=== PATIENT | female | born 1940 | race Caucasian/White ===

== ENCOUNTER → 2017-09-15 | Outpatient (CLI) | payer MEDICARE, OTHER ==
[~2017-09-15] MED LIST: AMLO5TAB2 PO; HYDR25TA5 PO; LOSA100T PO; NUVI150T2 PO; PRIL20TA2 PO; TRAZ50TA12 PO
[2017-09-15 10:27] LABS: AUTOMATED NEUTROPHIL # 3.7 TH/MM3 (1.8-7.7); BASOPHIL # 0.1 TH/MM3 (0-0.2); BASOPHIL % 1.1 % (0.0-2.0); EOSINOPHIL # 0.1 TH/MM3 (0-0.4); HEMATOCRIT 40.1 % (35.0-46.0); HEMOGLOBIN 13.6 GM/DL (11.6-15.3); LYMPH % 19.9 % (9.0-44.0); LYMPHOCYTE # 1.1 TH/MM3 (1.0-4.8); MEAN CELL VOLUME 87.6 FL (80.0-100.0); MEAN CORPUSCULAR HEMOGLOBIN 29.7 PG (27.0-34.0); MEAN CORPUSCULAR HGB CONC 33.9 % (32.0-36.0); MEAN PLATELET VOLUME 7.1 FL (7.0-11.0); MONO % 11.3 % (0.0-8.0); MONOCYTE # 0.6 TH/MM3 (0-0.9); NEUT % 65.7 % (16.0-70.0); PLATELET COUNT 363 TH/MM3 (150-450); RED BLOOD COUNT 4.58 MIL/MM3 (4.00-5.30); RED CELL DISTRIBUTION WIDTH 13.5 % (11.6-17.2); WHITE BLOOD COUNT 5.6 TH/MM3 (4.0-11.0)
[2017-09-15 10:51] LABS: ALBUMIN 4.1 GM/DL (3.4-5.0); ALT (GPT) 35 U/L (10-53); AST (GOT) 23 U/L (15-37); BLOOD UREA NITROGEN 15 MG/DL (7-18); CALCIUM 9.5 MG/DL (8.5-10.1); CHLORIDE 93 MEQ/L (98-107); CREATININE 0.81 MG/DL (0.50-1.00); GLOMERULAR FILTRATION RATE 69 ML/MIN (>89); GLUCOSE,FASTING 85 MG/DL (74-99); SODIUM (NA) 129 MEQ/L (136-145)
[2017-09-15 10:53] LABS: ALKALINE PHOSPHATASE 90 U/L (45-117); TOTAL BILIRUBIN ADULT 0.3 MG/DL (0.2-1.0); TOTAL PROTEIN 8.4 GM/DL (6.4-8.2); WESTERGREN SEDIMENTATION RATE 28 mm/hr (0-30)
--- NOTE | 2017-09-15 12:47 | RADRPT ---
EXAM DATE/TIME: 09/15/2017 12:11 [facility] COMPARISON: No previous studies available for comparison. INDICATIONS : Evaluate for communicable disease, pneumonia, pneumothorax. MEDICAL HISTORY : None. SURGICAL HISTORY : None. ENCOUNTER: Initial ACUITY: 1 day PAIN SCORE: 0/10 LOCATION: Bilateral chest FINDINGS: PA and lateral views of the chest demonstrate the lungs to be symmetrically aerated without evidence of mass, infiltrate or effusion. The cardiomediastinal contours are unremarkable. Osseous structure s are intact. Previous lumbar spine fixation. CONCLUSION: Negative for acute process. Nayan Kline MD FACR on September 15, 2017 at 12:44 Board Certified Radiologist. This report was verified electronically.
[2017-09-15 14:20] LABS: AMORPHOUS SEDIMENT, URINE MOD; BILIRUBIN, URINE NEG (NEG); BLOOD, URINE NEG (NEG); GLUCOSE,URINE NEG (NEG); HYALINE CAST, URINE 1 /lpf (RARE); KETONE, URINE NEG (NEG); NITRITE,URINE NEG (NEG); SQUAMOUS EPITHELIAL CELL URINE <1 /hpf (0-5); URINE COLOR YELLOW (YELLW/STRAW); URINE LEUKOCYTE ESTERASE NEG (NEG)
--- NOTE | 2017-09-16 13:30 | EKG ---
Date Performed: 09/15/2017 Time Performed: 11:35:06 PTAGE: 76 years EKG: Sinus rhythm with PAC(s). Possible anteroseptal infarct - age undetermined Inferior T wave changes are nonspecifi c Low QRS voltages in precordial leads Abnormal ECG NO PREVIOUS TRACING DOCTOR: Dave Alejandro Interpretating Date/Time 09/16/2017 13:29:53
== END ==
LOC: CPRE 09:20
PROVIDERS: ATTEND Orthopaedic Surgery Sports Medicine
DX: Z01.812 Encounter for preprocedural laboratory examination (principal); Z01.811 Encounter for preprocedural respiratory examination; Z01.810 Encounter for preprocedural cardiovascular examination; M16.11 Unilateral primary osteoarthritis, right hip; R94.31 Abnormal electrocardiogram [ECG] [EKG]
CPT/HCPCS: 36415; 71046; 80053; 81001; 85025; 85610; 85652; 85730; 93005

== ENCOUNTER 2017-10-02 05:17 | Inpatient (IN) | payer MEDICARE, OTHER ==
[~2017-10-02] VITALS: Ht 160 cm; Wt 81.8 kg
[2017-10-02] MEDS ORDERED: HYDR25TA5 PO (05:53)
[2017-10-02] MEDS ORDERED: POVIDONE IODINE 7.5% SCRUB 118 ML BOTTLE TOPICAL SCH (06:15)
[2017-10-02] MEDS ORDERED: TRANEXAMIC PERI-ARTICULAR 3,000 MG/NS 100 ML P-ARTICULR SCH ×2 (06:15)
[2017-10-02] MEDS ORDERED: LACTATED RINGER'S 1000 ML IV PRN (06:15)
[2017-10-02] MEDS ORDERED: SODIUM CHLORID 0.9% 500 ML IV PRN (06:15)
[2017-10-02] MEDS ORDERED: TRANEXAMIC ACID IV SCH (06:15)
[2017-10-02] MEDS ORDERED: CHLORHEXIDINE GLUCONATE 4% SOLN 120 ML BTL TOPICAL SCH (06:15)
[2017-10-02] MEDS ORDERED: SODIUM CHLORIDE 0.9% IV SCH (06:15)
[2017-10-02] MEDS ORDERED: EXPAREL PERI-ARTICULAR INJECTION (TOTAL VOL. 60 ML) P-ARTICULR SCH ×2 (06:15)
[2017-10-02] MEDS ORDERED: VANCOMYCIN 1000 MG/NS 250 ML (for <70 kg) IV SCH ×2 (06:15)
[2017-10-02] MEDS ORDERED: CHLORHEXIDINE GLUCONATE 2 % 1 PACK (2 CLOTHS) TOPICAL PRN (06:15)
[2017-10-02] MEDS ORDERED: POVIDONE IODINE 5% (ANTISEPSIS KIT) 4 APPLICATIONS EACH NARE PRN (06:15)
[2017-10-02] MEDS ORDERED: METOPROLOL TARTRATE 25 MG TAB PO PRN (06:15)
[2017-10-02] MEDS ORDERED: ceFAZolin 2 GM PREMIX 50 ML IV SCH (06:15)
[2017-10-02] MEDS ORDERED: DEXAMETHASONE SOD PHOS 20 MG/5 ML VIAL IV PRN (06:15)
[2017-10-02] MEDS ORDERED: GENTAMICIN SULFATE 80 MG/2 ML VIAL ONE (06:20)
[2017-10-02] MEDS ORDERED: NALOXONE HCL 0.4 MG/ML AMP IV PUSH PRN (06:45)
[2017-10-02] MEDS ORDERED: Post-op Orders (for Pharmacy) XX ONE (06:45)
[2017-10-02] MEDS ORDERED: HYDR-3288 PO (06:47)
[2017-10-02] MEDS ORDERED: ASPI81CH6 CHEW (06:48)
[2017-10-02] MEDS ORDERED: ZOLPIDEM TARTRATE 5 MG TAB PO PRN (08:00)
[2017-10-02] MEDS ORDERED: BISACODYL 10 MG SUPP RECTAL PRN (08:00)
[2017-10-02] MEDS ORDERED: diphenhydrAMINE HCL 50 MG/ML VIAL IV PUSH PRN (08:00)
[2017-10-02] MEDS ORDERED: ACETAMINOPHEN/HYDROcodone 325 MG/10 MG TAB PO PRN ×2 (08:00)
[2017-10-02] MEDS ORDERED: ONDANSETRON HCL 4 MG/2 ML VIAL IVP PRN (08:00)
[2017-10-02] MEDS ORDERED: MORPHINE SULFATE 4 MG/ML INJ IV PUSH PRN (08:00)
[2017-10-02] MEDS ORDERED: DO NOT ADM ANY ANTICOAGULANT DRUGS PRN (08:48)
[2017-10-02] MEDS: SODIUM CHLOR 0.9% 1000 ML INJ 1,000 ML IV SCH ×2 (08:56→21:15)
[2017-10-02] MEDS: amLODIPine BESYLATE 5 MG TAB PO SCH (09:00)
[2017-10-02] MEDS ORDERED: *morphine SULFATE 4 MG/ML PERIprocedure ONLY ONE ×2 (09:00→09:21)
[2017-10-02] MEDS: HYDROCHLOROTHIAZIDE 25 MG TAB PO SCH (09:00)
[2017-10-02] MEDS ORDERED: ARMODAFINIL 150 MG PO SCH (09:00)
[2017-10-02] MEDS ORDERED: PANTOPRAZOLE SOD 20 MG DELAYED RELEASE TAB PO SCH (09:00)
[2017-10-02] MEDS: LOSARTAN 50 MG TAB PO SCH (09:00)
[2017-10-02 10:20] VITALS: BP 123/64; PULSE 74; RESP 17; TEMP 96.5; O2SAT 98
--- NOTE | 2017-10-02 10:20 | RADRPT ---
EXAM DATE/TIME: 10/02/2017 09:01 [facility] COMPARISON: No previous studies available for comparison. INDICATIONS : Post op right total hip replacement. MEDICAL HISTORY : None. SURGICAL HISTORY : None. ENCOUNTER: Initial ACUITY: 1 day PAIN SCORE: 3/10 LOCATION: Right Hip FINDINGS: The patient is status post a total hip arthroplasty with a bipolar prosthesis. Prosthesis is well-sea zulema. Alignment is anatomic. A fracture is not appreciated. Posterior spinal fusion is noted as well. CONCLUSION: Anatomic alignment. Nayan Kline MD FACR on October 02, 2017 at 10:17 Board Certified Radiologist. This report was verified electronically.
[2017-10-02] MEDS ORDERED: PHENYLEPH/NS 1000 MCG/10 ML SYR IV ONE (12:00)
[2017-10-02] MEDS ORDERED: LIDOCAINE HCL 1% PF 5 ML SYRINGE OTHER ONE (12:00)
[2017-10-02] MEDS ORDERED: PROPOFOL 200 MG/20 ML AMP IV ONE (12:00)
[2017-10-02] MEDS ORDERED: ePHEDrine/NS 25 MG/5 ML SYRINGE IV ONE (12:00)
[2017-10-02] MEDS ORDERED: ROCURONIUM INJ 50 MG/5 ML SYRINGE IV PUSH ONE (12:00)
[2017-10-02 12:04] VITALS: BP 115/60; PULSE 76; RESP 16; TEMP 96.7; O2SAT 98
--- NOTE | 2017-10-02 13:53 | RADRPT ---
EXAM DATE/TIME: 10/02/2017 07:15 [facility] COMPARISON: No previous studies available for comparison. INDICATIONS : Right anterior hip replacement. MEDICAL HISTORY : Hypertension. Osteoarthritis. Carcinoma, breast. SURGICAL HISTORY : Hysterectomy. ENCOUNTER: Initial ACUITY: 1 day PAIN SCORE: Non-responsive. LOCATION: Right anterior hip FINDINGS: The patient is status post a total hip arthroplasty with a bipolar prosthesis. Prosthesis is well-sea zulema. Alignment is anatomic. A fracture is not appreciated. CONCLUSION: Anatomic alignment. Nayan Kline MD FACR Board Certified Radiologist. This report was verified electronically.
--- NOTE | 2017-10-02 13:54 | HHI.DCPOC ---
Discharge Care Plan Diagnosis: (1) Primary localized osteoarthrosis, pelvic region and thigh Your Health Problems Are: Difficulty with ADL Goals to Promote Your Health * To prevent worsening of your condition and complications * To maintain your health at the optimal level Directions to Meet Your Goals Take your medications as prescribed Follow your dietary instruction Follow activity as directed Keep your appointments as scheduled Take your immunizations and boosters as scheduled If your symptoms worsen call your PCP, if no PCP go to Urgent Care Center or Emergency Room Smoking is Dangerous to Your Health. Avoid second hand smoke Call the 24-hour hour crisis hotline for domestic abuse at Mohit Foster Oct 02, 2017 13:54
--- NOTE | 2017-10-02 13:55 | HHI.FF ---
Face to Face Verification Diagnosis: (1) Primary localized osteoarthrosis, pelvic region and thigh Physical Therapy Gait training, Safety evaluation, Transfer training, bed to chair Knee: Total knee, Protocol: Right, Full weight bearing Right LE Weight Bearing: WB as tolerated Nursing RN: 3 days/week x 2 weeks Nursing: Dressing changes Dressing Changes: Daily dressing change Additional Instructions okay to maintain dressing unless saturated I have seen patient Erendira Santana on 10/02/17. My clinical findings support the need for the requested home health care services because: Limited ability to care for self High risk of falls I certify that my clinical findings support that this patient is homebound because: Post-op weakness Unsteady gait/balance Mohit Foster Oct 02, 2017 13:55
--- NOTE | 2017-10-02 15:47 | PD.CONS ---
HPI Service [facility] Consult Requested By Primary Care Physician Mina Beck M.D. Diagnoses: History of Present Illness Mrs. Santana is a 77-year-old female. She is admitted here to have a right hip arthroplasty, anterior approach. I am seeing her postop and she is doing well thus far. No nausea or vomiting and no pain. Baseline medical conditions include hypertension and narcolepsy. Previous surgeries are 2 level spinal fusion and lumpectomy and hysterectomy. No other complaints when seen. Blood pressures are stable when seen. Review of Systems Constitutional: DENIES: Fever, Chills, Night Sweats Eyes: DENIES: Blurred vision, Diplopia, Eye inflammation, Eye pain Ears, nose, mouth, throat: DENIES: Tinnitus, Hearing loss, Vertigo, Nasal discharge Respiratory: DENIES: Cough, Wheezing, Shortness of breath Cardiovascular: DENIES: Chest pain, Palpitations, Syncope Gastrointestinal: DENIES: Abdominal pain, Black stools, Bloody stools Musculoskeletal: COMPLAINS OF: Joint pain, DENIES: Muscle aches, Stiffness Integumentary: DENIES: Abnormal pigmentation, Pruritus, Rash, Nail changes Hematologic/lymphatic: DENIES: Bruising, Lymphadenopathy Immunologic/allergic: DENIES: Eczema, Urticaria Neurologic: DENIES: Abnormal gait, Headache, Paresthesias Psychiatric: DENIES: Anxiety, Confusion, Hallucinations Past Family Social History Allergies: Coded Allergies: sulfite (Verified Allergy, Unknown, Rash, 10/02/17) Past Medical History Hypertension Narcolepsy Past Surgical History 2 level spinal fusion Breast Lumpectomy Hysterectomy Reported Medications Reported Meds & Active Scripts Active Aspirin Low Dose (Aspirin) 81 Mg Chew 81 Mg CHEW BID 30 Days Mercer (Hydrocodone-Acetaminophen) 7.5-325 mg Tab 1-2 Tab PO Q6H PRN Reported Hydrochlorothiazide 25 Mg Tab 25 Mg PO DAILY Prilosec (Omeprazole Magnesium) 20 Mg Tab 20 Mg PO DIRECTED MON, WED, FRI Nuvigil (Armodafinil) 250 Mg Tab 150 Mg PO DIRECTED MID MORNING Trazodone (Trazodone HCl) 50 Mg Tab 50 Mg PO HS Losartan (Losartan Potassium) 100 Mg Tab 100 Mg PO DAILY Amlodipine (Amlodipine Besylate) 5 Mg Tab 5 Mg PO DAILY Active Ordered Medications Administered Medications Medications (Trade) Dose Ordered Sig/Chalo Route PRN Reason Start Time Stop Time Status Last Admin Dose Admin Dexamethasone Sodium Phosphate (Decadron Inj) 10 mg CRANE MANAGER PRN IV GIVE IN OR HOLDING 10/02/17 06:15 10/02/17 23:00 10/02/17 06:20 Cefazolin Sodium/ Dextrose 50 ml @ 100 mls/hr CRANE MANAGER IV 10/02/17 06:15 10/05/17 06:14 10/02/17 06:25 Vancomycin HCl 1000 mg/Sodium Chloride 250 ml @ 250 mls/hr CRANE MANAGER IV 10/02/17 06:15 10/05/17 06:14 10/02/17 06:29 Tranexamic Acid 1225 mg/Sodium Chloride 112.25 ml @ 200 mls/ hr ONCE IV 10/02/17 06:15 10/02/17 17:00 10/02/17 06:55 Tranexamic Acid 3000 mg/Sodium Chloride 130 ml @ 260 mls/hr ONCE P-ARTICULR 10/02/17 06:15 10/02/17 17:00 10/02/17 07:25 Lactated Ringer's 1,000 ml @ 30 mls/hr Q24H PRN IV SEE LABEL COMMENTS 10/02/17 06:15 10/05/17 06:14 10/02/17 05:55 Chlorhexidine Gluconate (Chlorhexidine 2% Cloth) 3 pack CRANE MANAGER PRN TOPICAL SEE LABEL COMMENTS 10/02/17 06:15 10/05/17 06:14 10/02/17 05:30 Bupivacaine Liposome 20 ml/ Sodium Chloride 60 ml @ 120 mls/hr ONCE P-ARTICULR 10/02/17 06:15 10/02/17 16:00 10/02/17 07:25 Sodium Chloride 1,000 ml @ 100 mls/hr Q10H IV 10/02/17 08:00 10/02/17 08:56 Cefazolin Sodium 1000 mg/Sodium Chloride 100 ml @ 200 mls/hr Q6H IV 10/02/17 13:00 10/03/17 01:29 10/02/17 13:00 Family History Osteoarthritis of brain tumor in mother Hyperlipidemia father Social History Occasional alcohol use No nicotine use No illicit drug abuse Physical Exam Vital Signs Vital Signs Date Time Temp Pulse Resp B/P (MAP) Pulse Ox O2 Delivery O2 Flow Rate FiO2 10/02/17 12:04 96.7 76 16 115/60 (78) 98 10/02/17 10:20 96.5 74 17 123/64 (83) 98 10/02/17 09:43 97.0 74 13 123/66 (85) 99 Nasal Cannula 2 10/02/17 09:30 72 12 126/65 (85) 99 Nasal Cannula 2 10/02/17 09:15 96.3 75 12 126/60 (82) 98 Nasal Cannula 3 10/02/17 09:00 81 12 124/60 (81) 98 Nasal Cannula 3 10/02/17 08:45 91 12 122/57 (78) 96 Nasal Cannula 3 10/02/17 08:43 96.3 73 12 119/62 (81) 95 Nasal Cannula 3 10/02/17 06:02 97.9 66 18 158/82 (107) 100 Physical Exam GENERAL: NAD, A&Ox3 HEAD: Normocephalic. NECK: Supple, trachea midline. No lymphadenopathy. EYES: No scleral icterus. No injection or drainage. CARDIOVASCULAR: Regular rate and rhythm without murmurs, gallops, or rubs. RESPIRATORY: Breath sounds equal bilaterally. No accessory muscle use. GASTROINTESTINAL: Abdomen soft, non-tender, nondistended. MUSCULOSKELETAL: No cyanosis, or edema. Limited range of motion of right hip. SKIN: Warm and dry. NEURO: No focal neurological deficitis. Imaging Last Impressions Hip and Pelvis X-Ray 10/02/17 0000 Signed Impressions: Service Date/Time: Monday, October 02, 2017 09:01 - CONCLUSION: Anatomic alignment. Nayan Kline MD FACR Hip X-Ray 10/02/17 0000 Signed Impressions: Service Date/Time: Monday, October 02, 2017 07:15 - CONCLUSION: Anatomic alignment. Nayan Kline MD Assessment and Plan Problem List: (1) Primary localized osteoarthrosis, pelvic region and thigh ICD Code: M16.10 - Unilateral primary osteoarthritis, unspecified hip Assessment and Plan 77-year-old female admitted secondary to right hip arthroplasty Status post right hip arthroplasty, anterior approach Doing well postop Orthopedic surgeons following Continue pain treatment is needed Continue physical therapy Potential discharge in 1-2 days Hypertension Stable Continue baseline treatments Narcolepsy Continue baseline treatment DVT prophylaxis Per discretion of orthopedic surgeon Discharge planning Medically clear for discharge if hemoglobin levels are stable tomorrow morning Arcadio Lancaster MD Oct 02, 2017 15:46
[2017-10-02 16:14] VITALS: BP 143/67; PULSE 75; RESP 16; TEMP 96.8; O2SAT 96
[2017-10-02 17:07] VITALS: O2SAT 96
[2017-10-02 19:21] VITALS: BP 113/63; PULSE 77; RESP 18; TEMP 98; O2SAT 98
[2017-10-02] MEDS: traZODone HCL 50 MG TAB PO SCH (21:15)
[2017-10-03] VITALS (8 sets, daily range): BP systolic 94–149; BP diastolic 57–72; PULSE 57–100; RESP 17–18; TEMP 96.3–98.9; O2SAT 93–97
[2017-10-03] MEDS: SODIUM CHLOR 0.9% 1000 ML INJ 1,000 ML IV SCH ×3 (01:54→21:43)
[2017-10-03 07:13] LABS: HEMOGLOBIN 11.4 GM/DL (11.6-15.3); MEAN CELL VOLUME 88.7 FL (80.0-100.0); MEAN CORPUSCULAR HEMOGLOBIN 30.8 PG (27.0-34.0); MEAN CORPUSCULAR HGB CONC 34.7 % (32.0-36.0); MEAN PLATELET VOLUME 7.5 FL (7.0-11.0); PLATELET COUNT 275 TH/MM3 (150-450); RED BLOOD COUNT 3.72 MIL/MM3 (4.00-5.30); RED CELL DISTRIBUTION WIDTH 13.3 % (11.6-17.2); WHITE BLOOD COUNT 9.3 TH/MM3 (4.0-11.0)
[2017-10-03 07:41] LABS: BICARBONATE 25.8 MEQ/L (21.0-32.0); CALCIUM 8.3 MG/DL (8.5-10.1)
[2017-10-03] MEDS: amLODIPine BESYLATE 5 MG TAB PO SCH (08:13)
[2017-10-03] MEDS: LOSARTAN 50 MG TAB PO SCH (08:13)
[2017-10-03] MEDS: HYDROCHLOROTHIAZIDE 25 MG TAB PO SCH (08:13)
[2017-10-03] MEDS: ENOXAPARIN SODIUM 30 MG/0.3 ML SYRINGE SQ SCH (08:13)
--- NOTE | 2017-10-03 08:15 | PD.ORT.PN ---
Subjective Post Op Day #: 1 Subjective Remarks pain controlled. thigh sore. Objective Vitals Vital Signs Date Time Temp Pulse Resp B/P (MAP) Pulse Ox O2 Delivery O2 Flow Rate FiO2 10/03/17 04:44 98.9 100 18 116/71 (86) 95 10/03/17 00:11 98.0 83 18 132/63 (86) 97 10/02/17 19:21 98.0 77 18 113/63 (80) 98 10/02/17 17:07 96 10/02/17 16:14 96.8 75 16 143/67 (92) 96 10/02/17 12:04 96.7 76 16 115/60 (78) 98 10/02/17 10:20 96.5 74 17 123/64 (83) 98 10/02/17 09:43 97.0 74 13 123/66 (85) 99 Nasal Cannula 2 10/02/17 09:30 72 12 126/65 (85) 99 Nasal Cannula 2 10/02/17 09:15 96.3 75 12 126/60 (82) 98 Nasal Cannula 3 10/02/17 09:00 81 12 124/60 (81) 98 Nasal Cannula 3 10/02/17 08:45 91 12 122/57 (78) 96 Nasal Cannula 3 10/02/17 08:43 96.3 73 12 119/62 (81) 95 Nasal Cannula 3 I/O 10/02/17 10/02/17 10/02/17 10/03/17 10/03/17 10/03/17 07:00 15:00 23:00 07:00 15:00 23:00 Intake Total 773 ml 1280 ml 480 ml Output Total 600 ml 1000 ml 1000 ml Balance 173 ml 280 ml -520 ml Intake Oral 0 ml 1280 ml 480 ml IV Total 773 ml Output Urine Total 400 ml 1000 ml 1000 ml Estimated Blood Loss 200 ml # Bowel Movements 0 0 Result Diagram: 10/03/17 0512 10/03/17 0512 Objective Remarks in bed, nad dressing c/d/i no erythema thigh soft neg homans nvi Assessment & Plan Ortho Post Op Day #: 1 Problem List: Assessment and Plan s/p R ROBEL anterior approach wbat ok to maintain dressing unless saturated lovenox - d/c on asa81 d/c planning home with [facility] and pt - cleared today if does well in PT f/up dr. peters 2 weeks Mohit Foster Oct 03, 2017 08:15
[2017-10-03] MEDS ORDERED: DOCU100C15 PO (08:27)
[2017-10-03 08:30] LABS: CREATININE 0.74 MG/DL (0.50-1.00)
--- NOTE | 2017-10-03 08:45 | MP ---
cc: THIAGO OSPINA M.D. DATE OF SURGERY 10/02/2017 PREOPERATIVE DIAGNOSIS Right hip osteoarthritis. POSTOPERATIVE DIAGNOSES Right hip osteoarthritis. PROCEDURE Right total hip arthroplasty. SURGEON Dr. Thiago Ospina. MANAGER ONCOLOGY MARILEE Montoya. ANESTHESIA General. ESTIMATED BLOOD LOSS 200 cc. COMPLICATIONS None. IMPLANTS USED DePuy Corail, size 11 Press-Fit standard offset femoral stem, 48 solid Midland Gription cup, 32 mm cobalt-chrome head, +5 neck. JUSTIFICATION This patient is the patient is a 76-year-old female with a history of severe osteoarthritis involving the right hip. She has severe disabling pain with standing, walking ambulation and weightbearing activities and severe pain at rest. She has failed greater than three months of nonoperative conservative treatment include medication therapy, injections, ambulatory assisted aids, home exercise program, activity modification and weight loss. X-rays of the right hip reveal severe end-stage osteoarthritis with [id number] joint space narrowing, subchondral sclerosis, subchondral cysts, osteophyte formation and subluxation. The patient was counseled as to the risks, benefits and alternatives to a total hip arthroplasty. The risks were discussed which include but are not limited to anesthesia, bleeding, infection, damage to nerves and blood vessels, pain, stiffness, failure of components, leg length discrepancy, fracture dislocations, blood clot, pulmonary embolism, and even . The patient's pain is severe. She favored the benefits over the risks. She did wish to proceed with surgery. PROCEDURE IN DETAIL A written consent was obtained. The patient was identified by name, taken to the operating room and placed supine on the operating table. General anesthesia was administered as well as two grams of IV Ancef and one gram of IV vancomycin. The right and left foot were placed in padded traction boots. The right hip and right lower extremity were prepped and draped using isopropyl alcohol, Hibiclens solution and ChloraPrep solution. After a timeout was performed a longitudinal incision was made over the anterolateral aspect of the right hip. The fascial layer was incised. Dissection was carried over the tensor fascia ollie beneath the rectus femoris to allow exposure of the anterior hip capsule. A capsulotomy incision was performed. An oscillating saw was used to perform a femoral neck cut. The osteoarthritic femoral head and neck component was removed. A 10 blade scalpel was used to excise the labrum. Reaming of the acetabulum began at size 43 mm and was carried through to size 46 mm. Subsequently a solid Midland Gription cup was implanted in approximately 45 degrees of abduction and 10 degrees of anteversion. There was good purchase and fixation after insertion of the cup. A screw hole eliminator was placed followed by the neutral liner. The liner was impacted in place and tested for stability. Attention was turned to the femur where the leg was externally rotated, adducted and extended down to the ground. The capsule was released off the undersurface of the greater trochanter to allow for elevation and lateralization of the femur. A box cutting osteotome was used to gain entrance into the intramedullary canal and femur followed by a canal finder and sequential broaching up to size 11. A calcar planer was used to plane the calcar. Trial head and neck combinations were evaluated and final components implanted. With the current components the leg could achieve external rotation to 70 degrees and extension all the way down to the ground before evidence of anterior instability. Soft tissue tension felt appropriate. With the trial +1 neck the hip showed some mild anterior instability, but with the +5 showed excellent stability which is why I favored this length. Fluoroscopic imaging showed appropriate implantation of components. The surgical wound was thoroughly irrigated with sterile saline pulse lavage antibiotic-impregnated solution. The fascia layer was closed with #1 Vicryl suture, the subcutaneous layer with 2-0 Vicryl suture and skin was closed with Dermabond. Sterile dressing was applied. The patient tolerated the procedure well with no intraoperative complications noted. Rickie Foster, physician accounting manager assistant controller certified, was present during the entire procedure to include patient positioning and the procedure itself. The medical necessity of a physician accounting manager assistant controller was indicated in this case due to the complexity of the procedure. He assisted with appropriate manipulation of the leg and also retraction of muscle, tendon, bone and neurovascular structures. He assisted with preparation of bone and also implantation of the prosthetic replacement. MD DONY Velasquez/SHIREEN /8:20 AM /8:27 AM
--- NOTE | 2017-10-03 10:38 | HHI.PR ---
Subjective Remarks Doing well postop. Ambulating well with PT. Potential discharge today. Hemoglobin is 11.4. No further monitoring of hemoglobin. Objective Vital Signs Date Time Temp Pulse Resp B/P (MAP) Pulse Ox O2 Delivery O2 Flow Rate FiO2 10/03/17 09:21 18 10/03/17 08:43 96 21 10/03/17 08:00 97.9 70 18 146/71 (96) 96 10/03/17 04:44 98.9 100 18 116/71 (86) 95 10/03/17 00:11 98.0 83 18 132/63 (86) 97 10/02/17 19:21 98.0 77 18 113/63 (80) 98 10/02/17 17:07 96 10/02/17 16:14 96.8 75 16 143/67 (92) 96 10/02/17 12:04 96.7 76 16 115/60 (78) 98 I/O 10/02/17 10/02/17 10/02/17 10/03/17 10/03/17 10/03/17 07:00 15:00 23:00 07:00 15:00 23:00 Intake Total 773 ml 1280 ml 480 ml Output Total 600 ml 1000 ml 1000 ml Balance 173 ml 280 ml -520 ml Intake Oral 0 ml 1280 ml 480 ml IV Total 773 ml Output Urine Total 400 ml 1000 ml 1000 ml Estimated Blood Loss 200 ml # Bowel Movements 0 0 Result Diagram: 10/03/1751110/03/17 0512 Objective Remarks GENERAL: NAD, A&Ox3 HEAD: Normocephalic. NECK: Supple, trachea midline. No lymphadenopathy. EYES: No scleral icterus. No injection or drainage. CARDIOVASCULAR: Regular rate and rhythm without murmurs, gallops, or rubs. RESPIRATORY: Breath sounds equal bilaterally. No accessory muscle use. GASTROINTESTINAL: Abdomen soft, non-tender, nondistended. MUSCULOSKELETAL: No cyanosis, or edema. SKIN: Warm and dry. NEURO: No focal neurological deficitis. A/P Problem List: (1) Primary localized osteoarthrosis, pelvic region and thigh ICD Code: M16.10 - Unilateral primary osteoarthritis, unspecified hip Assessment and Plan 77-year-old female admitted secondary to right hip arthroplasty Status post right hip arthroplasty, anterior approach Doing well postop Hemoglobin stable postop. Orthopedic surgeon follow up as outpatient Continue pain treatment is needed Continue physical therapy Medically clear for discharge today Hypertension Stable Continue baseline treatments Narcolepsy Continue baseline treatment DVT prophylaxis Per discretion of orthopedic surgeon Discharge planning Medically clear for discharge today Arcadio Lancaster MD Oct 03, 2017 10:38
[2017-10-03] MEDS ORDERED: SODIUM CHLORID 0.9% 500 ML INJ 500 ML IV SCH (13:30)
[2017-10-03] MEDS: DOCUSATE SODIUM 100 MG CAP PO SCH (21:39)
[2017-10-03] MEDS: MULTIVITAMINS/MINERALS THERAPEUTIC TAB PO SCH (21:39)
[2017-10-03] MEDS: traZODone HCL 50 MG TAB PO SCH (21:39)
[2017-10-04 03:34] VITALS: BP 144/67; PULSE 89; RESP 18; TEMP 98.7; O2SAT 93
--- NOTE | 2017-10-04 06:46 | PD.ORT.PN ---
Subjective Post Op Day #: 2 Subjective Remarks pain controlled. thigh sore. hypotensive yesterday, better this am. Objective Vitals Vital Signs Date Time Temp Pulse Resp B/P (MAP) Pulse Ox O2 Delivery O2 Flow Rate FiO2 10/04/17 03:34 98.7 89 18 144/67 (92) 93 10/03/17 23:04 97.3 73 18 149/67 (94) 93 10/03/17 19:11 97.9 57 18 138/72 (94) 95 10/03/17 16:26 98.0 82 18 140/59 (86) 97 10/03/17 12:00 96.3 97 17 94/57 (69) 97 10/03/17 09:21 18 10/03/17 08:43 96 21 10/03/17 08:00 97.9 70 18 146/71 (96) 96 I/O 10/03/17 10/03/17 10/03/17 10/04/17 10/04/17 10/04/17 07:00 15:00 23:00 07:00 15:00 23:00 Intake Total 480 ml 1200 ml 480 ml Output Total 1000 ml 550 ml Balance -520 ml 650 ml 480 ml Intake Oral 480 ml 1200 ml 480 ml Output Urine Total 1000 ml 550 ml # Voids 7 4 # Bowel Movements 0 0 0 Result Diagram: 10/03/17 0512 10/03/17 0512 Objective Remarks in bed, nad dressing c/d/i no erythema, no drainage thigh soft neg homans nvi Assessment & Plan Ortho Post Op Day #: 2 Problem List: Assessment and Plan s/p R ROBEL anterior approach wbat ok to maintain dressing unless saturated lovenox - d/c on asa81 BP better today d/c planning home with [facility] and pt - cleared today if does well in PT f/up dr. peters 2 weeks Mohit Foster Oct 04, 2017 06:46
[2017-10-04 07:01] LABS: HEMATOCRIT 32.3 % (35.0-46.0); HEMOGLOBIN 11.2 GM/DL (11.6-15.3); MEAN CELL VOLUME 86.6 FL (80.0-100.0); MEAN CORPUSCULAR HEMOGLOBIN 30.1 PG (27.0-34.0); MEAN CORPUSCULAR HGB CONC 34.8 % (32.0-36.0); PLATELET COUNT 258 TH/MM3 (150-450); RED BLOOD COUNT 3.73 MIL/MM3 (4.00-5.30); RED CELL DISTRIBUTION WIDTH 13.5 % (11.6-17.2); WHITE BLOOD COUNT 8.9 TH/MM3 (4.0-11.0)
[2017-10-04 07:31] LABS: BICARBONATE 27.6 MEQ/L (21.0-32.0); CALCIUM 8.3 MG/DL (8.5-10.1); CREATININE 0.57 MG/DL (0.50-1.00)
[2017-10-04 08:00] VITALS: BP 142/75; PULSE 79; RESP 18; TEMP 98.3; O2SAT 96
[2017-10-04] MEDS: amLODIPine BESYLATE 5 MG TAB PO SCH (08:42)
[2017-10-04] MEDS: DOCUSATE SODIUM 100 MG CAP PO SCH (08:42)
[2017-10-04] MEDS: LOSARTAN 50 MG TAB PO SCH (08:42)
[2017-10-04] MEDS: MULTIVITAMINS/MINERALS THERAPEUTIC TAB PO SCH (08:43)
[2017-10-04] MEDS: HYDROCHLOROTHIAZIDE 25 MG TAB PO SCH (08:43)
[2017-10-04] MEDS: ENOXAPARIN SODIUM 30 MG/0.3 ML SYRINGE SQ SCH (08:43)
[2017-10-04] MEDS ORDERED: SENNOSIDES 8.6 MG TAB PO PRN (10:00)
[2017-10-04] MEDS ORDERED: LACTULOSE SYRUP 20 GM/30 ML CUP PO PRN (10:00)
[2017-10-04] MEDS ORDERED: MAGNESIUM HYDROXIDE SUSP 30 ML CUP PO PRN (10:00)
[2017-10-04 12:00] VITALS: BP 144/58; PULSE 125; RESP 18; TEMP 98; O2SAT 96
[2017-10-04 16:00] VITALS: BP 103/58; PULSE 108; RESP 18; TEMP 98.9; O2SAT 97
[2017-10-04] MEDS ORDERED: BISACODYL EC 5 MG TABEC PO SCH (21:00)
--- NOTE | 2017-10-05 10:51 | MD ---
cc: THIAGO COLLAZO M.D. ADMISSION DATE: 10/02/2017 DISCHARGE DATE: 10/04/2017 ADMISSION DIAGNOSIS Severe degenerative osteoarthritis, right hip. DISCHARGE DIAGNOSIS Severe degenerative osteoarthritis, right hip. HISTORY OF PRESENT ILLNESS Ms. Santana is a 77-year-old female who presented to the [facility] for evaluation by Dr. Thiago Collazo regarding her severe and progressive right hip pain. Patient states she has a constant severe aching sensation in the right hip with weightbearing activities. This pain has been present and progressive for greater than 1 year duration for which she has received treatment for this ailment. She has no alleviating factors, although in the past she has tried medications, bracing, assisted devices, physical therapy and home exercise program without relief of symptoms. She does have x-ray evidence of severe degenerative osteoarthritis of the right hip. While in the office the patient was counseled on her diagnosis and treatment options. Risks, benefits, indications all were discussed. The patient did elect to proceed with surgical intervention to include a right total hip arthroplasty. DATE OF SURGERY: 10/02/2017, right total hip arthroplasty anterior approach. POSTOP After surgery the patient was admitted to [facility] where she received appropriate medical management, pain control, DVT prophylaxis as well as physical therapy. DISCHARGE Once being discharged from the hospital the patient is cleared to go home where she will receive home health care and home physical therapy. She is in stable condition. She may weight-bear as tolerated with anterior hip precautions. The patient has been instructed on appropriate wound care management. She has also been provided prescriptions for pain control and DVT prophylaxis medication. The patient has been provided a follow-up appointment approximately 2 weeks from her date of surgery. The patient has asked appropriate questions which have been answered. The patient is cleared for discharge. Dictated by: NOREEN Rinaldi MD DONY Velasquez/TERRY /6:51 AM /10:16 AM
== END 2017-10-04 17:37 | disposition home health service (06) | DRG 470 ==
LOC: HSDI 05:17 → N06A 09:55
PROVIDERS: ADMIT Orthopaedic Surgery Sports Medicine; ATTEND Orthopaedic Surgery Sports Medicine
PROC: 0SR902A Replacement of Right Hip Joint with Metal on Polyethylene Synthetic Substitute, Uncemented, Open Approach (ICD-10-PCS; principal; 2017-10-02 06:42)
DX: M16.11 Unilateral primary osteoarthritis, right hip (principal); I95.9 Hypotension, unspecified; I10 Essential (primary) hypertension; K21.9 Gastro-esophageal reflux disease without esophagitis; G47.419 Narcolepsy without cataplexy; Z85.3 Personal history of malignant neoplasm of breast; Z88.2 Allergy status to sulfonamides; Z92.3 Personal history of irradiation; Z98.1 Arthrodesis status
CPT/HCPCS: 73502; 76000; 80048; 85027; 86850; 86900; 86901; 94150; C1776; C9290; J0690; J1100; J1580; J1650; J2270; J2370; J3010; J3370; J7030; J7040; J7050; J7120